=== PATIENT | male | born 2000 | race African-American/Black ===

== ENCOUNTER 2020-06-27 22:11 | Emergency (ER) | payer MEDICAID ==
[~2020-06-27] VITALS: Ht 172.7 cm; Wt 78.0 kg
[2020-06-27 22:45] VITALS: BP 131/66
[2020-06-27] MEDS ORDERED: LIDOCAINE HCL/PF 1% 10 MG/ML 5ML VIAL IJ ONE (22:45)
[2020-06-27] MEDS ORDERED: IBUPROFEN 600MG TABLET PO ONE (22:45)
[2020-06-27] MEDS ORDERED: BACITRACIN ZINC OINT UDPKT TOP ONE (22:45)
[2020-06-27] MEDS ORDERED: TETANUS, DIPHTHERIA, PERTUSSIS VAC/PF 0.5ML (>7YR OLD) IM ONE (22:45)
[2020-06-27] MEDS ORDERED: BO1 TP (23:45)
[2020-06-27] MEDS ORDERED: IBUP-2029 MT (23:45)
== END 2020-06-28 00:27 | disposition home or self-care (01) ==
LOC: ER 23:21
DX: S91.201A Unspecified open wound of right great toe with damage to nail, initial encounter (principal); W22.8XXA Striking against or struck by other objects, initial encounter; Y93.89 Activity, other specified; Y92.89 Other specified places as the place of occurrence of the external cause; Y99.8 Other external cause status
CPT/HCPCS: 11730; 73660; 90471; 90715; 99284; J3490; Z7610

== ENCOUNTER 2020-06-29 12:21 | Emergency (ER) | payer MEDICAID ==
[~2020-06-29] VITALS: Ht 172.7 cm; Wt 77.0 kg
[~2020-06-29 12:21] MED LIST: BO1 TP; IBUP-2029 MT
[2020-06-29 12:23] VITALS: BP 155/59
[2020-06-29] MEDS ORDERED: BACITRACIN ZINC OINT UDPKT TOP SCH (12:45)
== END 2020-06-29 14:25 | disposition home or self-care (01) ==
LOC: ER 12:21
DX: S90.111D Contusion of right great toe without damage to nail, subsequent encounter (principal); Z48.00 Encounter for change or removal of nonsurgical wound dressing; X58.XXXD Exposure to other specified factors, subsequent encounter
CPT/HCPCS: 99282; A4217

== ENCOUNTER 2021-09-19 19:37 | Emergency (ER) | payer OTHER ==
[~2021-09-19] VITALS: Ht 175.3 cm; Wt 87.0 kg
[2021-09-19 21:19] LABS: BASOPHILS % 0.4 % (0.0-2.0); EOSINOPHILS % 0.7 % (0.0-5.0); HEMATOCRIT. 46.4 % (42.0-52.0); HEMOGLOBIN. 15.2 g/dL (14.0-18.0); LYMPHOCYTES % 28.8 % (20.0-50.0); MEAN CORPUSCULAR HEMOGLOBIN 25.9 pg (28.0-32.0); MEAN CORPUSCULAR VOLUME 79.1 fL (80.0-94.0); MONOCYTES % 7.3 % (2.0-8.0); NEUTROPHILS % 62.8 % (40.0-76.0); PLATELET 248 x1000/uL (130-400); RED BLOOD CELL COUNT 5.87 mill/uL (4.7-6.1); RED CELL DISTRIBUTION WIDTH 13.4 % (11.6-14.6)
[2021-09-19 21:33] LABS: CHLORIDE 107 mEq/L (98-107)
[2021-09-19] MEDS ORDERED: IBUPROFEN 600MG TABLET PO ONE (23:15)
[2021-09-19 23:28] VITALS: BP 144/52
== END 2021-09-19 23:29 | disposition home or self-care (01) ==
LOC: ER 19:37
DX: R07.89 Other chest pain (principal)
CPT/HCPCS: 36415; 71045; 80053; 84484; 85025; 93005; 99285

== ENCOUNTER 2021-12-24 22:01 | Emergency (ER) | payer OTHER ==
[~2021-12-24] VITALS: Ht 177.8 cm; Wt 75.0 kg
[2021-12-24 23:57] LABS: BASOPHILS % 0.4 % (0.0-2.0); EOSINOPHILS % 0.4 % (0.0-5.0); HEMATOCRIT. 50.4 % (42.0-52.0); HEMOGLOBIN. 16.6 g/dL (14.0-18.0); LYMPHOCYTES % 16.3 % (20.0-50.0); MEAN CORPUSCULAR HEMOGLOBIN 26.4 pg (28.0-32.0); MEAN CORPUSCULAR VOLUME 79.8 fL (80.0-94.0); MEAN PLATELET VOLUME 8.7 fl (7.4-10.4); MONOCYTES % 9.5 % (2.0-8.0); NEUTROPHILS % 73.4 % (40.0-76.0); PLATELET 281 x1000/uL (130-400); RED BLOOD CELL COUNT 6.31 mill/uL (4.7-6.1); RED CELL DISTRIBUTION WIDTH 13.5 % (11.6-14.6)
[2021-12-25 00:04] LABS: CHLORIDE 101 mEq/L (98-107)
[2021-12-25 00:14] LABS: ETHANOL BLOOD < 10 mg/dL
[2021-12-25 00:15] LABS: CLARITY URINE CLEAR (CLEAR); COLOR URINE YELLOW (YELLOW); KETONES URINE NEGATIVE (NEGATIVE); LEUKOCYTE ESTERASE URINE NEGATIVE (NEGATIVE); NITRITE URINE NEGATIVE (NEGATIVE); OCCULT BLOOD URINE NEGATIVE (NEGATIVE); PROTEIN URINE NEGATIVE (NEGATIVE); UROBILINOGEN URINE 0.2 E.U./dL (0.2-1.0)
[2021-12-25 00:31] LABS: T4 FREE 1.11 ng/dL (0.76-1.46)
[2021-12-25 00:38] LABS: *AMPHETAMINES SCREEN URINE NEGATIVE (NEGATIVE); *BARBITURATES SCREEN URINE NEGATIVE (NEGATIVE); *BENZODIAZEPINES SCREEN URINE NEGATIVE (NEGATIVE); *COCAINE SCREEN URINE NEGATIVE (NEGATIVE); CANNABINOID URINE SCREEN NEGATIVE (NEGATIVE); METHADONE URINE SCREEN NEGATIVE (NEGATIVE); OPIATES URINE SCREEN NEGATIVE (NEGATIVE); PHENCYCLIDINE URINE SCREEN NEGATIVE (NEGATIVE)
[2021-12-25] MEDS ORDERED: IBUPROFEN 600MG TABLET PO STA (01:20)
[2021-12-25] MEDS ORDERED: NAPR-681 PO (02:43)
[2021-12-25] MEDS ORDERED: CYCL5TAB PO (02:43)
[2021-12-25 03:07] VITALS: BP 114/78
== END 2021-12-25 03:00 | disposition home or self-care (01) ==
LOC: ER 22:01
DX: M94.0 Chondrocostal junction syndrome [Tietze] (principal); R00.2 Palpitations
CPT/HCPCS: 36415; 71045; 80053; 80305; 80320; 81003; 83880; 84439; 84443; 85025; 93005; 99285; G0480